=== PATIENT | female | born 1980 | race Two or more races ===

== ENCOUNTER → 2016-09-08 | Day surgery (SDC) | payer OTHER ==
[~2016-09-08] MED LIST: BENADRYL PO; FERROUS SULFAT325 MG PO; HYDROCODON-ACE1 EAC9 PO; LISINOPRIL20 MG PO; PREDNISONE PO; PRENATAL MULITV1 TAB PO; XARELTO20 MG PO
--- NOTE | ~2016-09-08 | OR ---
Unit #: [id number] #: [id number] Patient: SANJIV LAMBERT [id number] [address] [address] [id number] O MR#: [id number] NAME: SANJIV LAMBERT ROOM: Date of Procedure: 09/08/2016 Admission Date: 09/08/2016 Surgeon: Denis Hsu M.D. : 1980 Attending Physician: Denis Hsu M.D. Primary Care Physician: Faye Paniagua A.P.R.N. OPERATIVE REPORT PREOPERATIVE DIAGNOSIS Cholecystitis. POSTOPERATIVE DIAGNOSES Hydrops of gallbladder and cholecystitis. PROCEDURE PERFORMED Laparoscopic cholecystectomy. PROFESSIONAL NURSING ASSISTANT None. ANESTHESIA General. ESTIMATED BLOOD LOSS Minimal. IV FLUIDS 800 crystalloid. COMPLICATIONS None. INDICATIONS FOR PROCEDURE The patient is a 35-year-old with right upper quadrant abdominal pain. DESCRIPTION OF PROCEDURE The patient was taken to the operating theater and placed in the supine position. General anesthesia was induced. Her abdomen was prepped and draped. A 5-mm Optiview trocar was placed in the right upper quadrant without difficulty. The abdomen was insufflated to 15 mmHg with CO2. Under direct vision, I placed a subxiphoid 10 mm, umbilical 5 mm, and right lateral 5 mm. General inspection of the abdomen revealed grossly distended gallbladder. This was decompressed with a needle decompression and found to have hydrops of the gallbladder. This allowed me to retract it up over the liver. I dissected the neck of the gallbladder and identified the cystic duct. Its junction with the gallbladder was confirmed. It was thus skeletonized, doubly hemoclipped, and divided. The cystic artery laid immediately posterior. This was skeletonized, doubly hemoclipped, and divided. The gallbladder was removed from the gallbladder bed with Bovie electrocautery and delivered via the subxiphoid Unit #: [id number] #: [id number] Patient: SANJIV LAMBERT port. Hemostasis was adequate. I removed the ports under direct vision with no evidence of abdominal hemorrhage. The wounds were closed with 4-0 Vicryl. The patient tolerated the procedure well and sent to the recovery room in good condition. Dictated by... Sheila Devine/lavinia TD: 09/09/2016 08:36 JOB #: [id number] OPERATIVE REPORT Page 1 of 1 X Denis Hsu MD PROCEDURE OPERATIVE NOTE
--- NOTE | ~2016-09-08 | EKG ---
PATIENT: SANJIV LAMBERT UNIT #: [id number] Ventricular Rate: 60 BPM Atrial Rate: 60 BPM P-R Interval: 166 ms QRS Duration: 80 ms Q-T Interval: 418 ms QTC Calculation(Bezet): 418 ms P [place]: 37 degrees Calculated R [place]: 53 degrees Calculated T [place]: 32 degrees Diagnosis Line: Normal sinus rhythm with sinus arrhythmia Diagnosis Line: Normal ECG Diagnosis Line: No previous ECGs available Diagnosis Line: Confirmed by ANDRE JO MD ([id number]) on 09/13/2016 Diagnosis Line: 2:32:46 PM INTERPRETING MD: DEYSI LUONG
[2016-09-08 10:03] LABS: HEMATOCRIT 32.9 % (35.0-45.0); HEMOGLOBIN 10.2 gm/dL (12.0-16.0); MEAN CELL VOLUME 68.1 FL (83-96); MEAN CORPUSCULAR HGB CONC 30.8 g/dL (30-36); MEAN PLATELET VOLUME 8.6 FL (6.5-11.5); RED BLOOD COUNT 4.84 X10e (3.90-5.30); RED CELL DISTRIBUTION WIDTH 19.8 % (11.0-15.5)
[2016-09-08 10:23] LABS: BUN/CREATININE RATIO 11.42; CALCIUM SERUM 8.7 mg/dL (8.4-10.2); CREATININE SERUM 0.7 mg/dL (0.6-1.4); GLOM FILT RATE Estimated 110.7 mL/min (>60); POTASSIUM 4.5 mmol/L (3.5-5.1)
== END | disposition home or self-care (01) ==
LOC: CSUR 09:01
PROVIDERS: Surgery
DX: K80.10 Calculus of gallbladder with chronic cholecystitis without obstruction (principal); D64.9 Anemia, unspecified; I10 Essential (primary) hypertension; Z98.890 Other specified postprocedural states; Z98.51 Tubal ligation status; Z86.711 Personal history of pulmonary embolism; Z86.2 Personal history of diseases of the blood and blood-forming organs and certain disorders involving the immune mechanism; Z87.891 Personal history of nicotine dependence; Z79.891 Long term (current) use of opiate analgesic
CPT/HCPCS: 80048; 84703; 85027; 88304; 93005; J0690; J1170; J1885; J2250; J2370; J2405; J2710; J3010

== ENCOUNTER 2016-09-16 09:29 | Emergency (ER) | payer OTHER ==
--- NOTE | ~2016-09-16 | CT71 ---
[facility] A Service of [facility] RADIOLOGY TEXT RESULTS PATIENT: SANJIV LAMBERT LOCATION: [facility] : 76 UNIT #: [id number] AGE: [address]: Padmini Beltre MD SEX: F ORDER DR: [id number] [facility] [address] [place], [place] [address] [id number] E MR#: [id number] Acc #: [id number] NAME: SANJIV LAMBERT : 1980 SEX: F STUDY DATE/TIME: 09/16/2016 10:18 UNIT: DIOGO ROOM: STUDY DESCRIPTION: CT Head Wo Contrast Attending Physician: Padmini Beltre M.D. Ordering Physician: Padmini Beltre M.D. Primary Care Physician: Faye Paniagua A.P.R.N. MEDICAL IMAGING REPORT This report is preliminary unless electronic signature is present EXAM Head CT without. HISTORY Vertigo. History of blood clots, lap-alisia on 09/08/2016. Vertigo, started today. COMMENT Routine noncontrast head CT is reviewed. This CT exam was performed with one or more of the following radiation dose reduction techniques: automatic exposure control, adjustment of mA and/or kV according to patient size, and iterative reconstruction. COMPARISON There is no comparison. FINDINGS Visualized paranasal sinuses and mastoid air cells are clear. No acute intracranial hemorrhage or extraaxial fluid collection. The ventricles are normal in size and configuration. The tirado-white junction is well-maintained. Basilar cisterns are patent. No intracranial mass effect. No acute cortical infarct. If there is clinical concern, however, for acute CVA, follow-up imaging is recommended with MRI if the patient is candidate. IMPRESSION 1. No acute intracranial abnormality is suspected. If there is clinical concern for acute CVA, follow-up imaging is recommended preferably with MRI. Dictated by... Neda Hurtado M.D. [facility] A Service of [facility] RADIOLOGY TEXT RESULTS PATIENT: SANJIV LAMBERT LOCATION: [facility] : [birth year] UNIT #: [id number] AGE: [address]: Padmini Beltre MD SEX: F ORDER DR: THIS IS AN ELECTRONICALLY VERIFIED REPORT Neda Hurtado M.D. at 09/17/2016 7:24 AM RIKKI/oscar TD: 09/16/2016 20:47 JOB #: [id number] MEDICAL IMAGING REPORT Page 1 of 1 COPY
== END 2016-09-16 11:37 | disposition home or self-care (01) ==
LOC: CED 09:29
DX: R42 Dizziness and giddiness (principal); I10 Essential (primary) hypertension; Z90.49 Acquired absence of other specified parts of digestive tract
CPT/HCPCS: 70450; 99284